=== PATIENT | female | born 1980 | race Caucasian/White ===

== ENCOUNTER 2017-02-21 18:35 | Outpatient (CLI) | payer SELFPAY | END 2017-02-21 18:36 | disposition EMS.NT | LOC: EMS 18:35 | PROVIDERS: ATTEND Surgery | DX: M25.512 Pain in left shoulder (principal); V49.9XXA Car occupant (driver) (passenger) injured in unspecified traffic accident, initial encounter; Y92.413 State road as the place of occurrence of the external cause ==

== ENCOUNTER 2017-03-18 08:28 | Outpatient (CLI) | payer OTHER ==
--- NOTE | 2017-03-18 16:40 | MRI Report ---
EXAM: MRI BRAIN WITHOUT CONTRAST EXAM DATE: 03/18/2017 09:16 AM. CLINICAL HISTORY: Amnesia. COMPARISON: None. TECHNIQUE: Multiplanar, multisequence T1-weighted and fluid-sensitive MR sequences of the brain were performed. Sequences optimized for routine evaluation. Other: None. IV Contrast: None. FINDINGS: Brain Volume: Normal for age. Parenchyma/Dura: No mass, acute infarct or hemorrhage. No white matter lesions identified. The hippoc ampal formation and medial temporal lobes are symmetric and unremarkable. Ventricles/Cisterns: No hydrocephalus. No abnormal extra-axial fluid collection or hemorrhage. Orbits: Symmetric and unremarkable. Sella Turcica: The pituitary gland, cavernous sinuses, suprasellar cistern and optic chiasm are unrem arkable. IAC: Symmetric and unremarkable. Vasculature: Normal signal flow void is seen in the major arterial structures at the skull base. Sinuses: Polypoid mucosal thickening and mucous retention cysts are seen in the maxillary antra, grea ter on the right. The mastoid air cells are clear. Bones: No focal pathologic appearing marrow signal changes. Other: None. IMPRESSION: 1.Normal noncontrast MRI of the brain. No acute abnormality. 2. Scattered polypoid mucosal thickening and mucous retention cysts in the maxillary antra, greater o n the right. [facility] Referring Provider Line: [phone] SITE ID: [id number]
== END 2017-03-18 08:29 | disposition home or self-care (01) ==
LOC: DI 08:28
PROVIDERS: ATTEND Registered Nurse Diabetes Educator
DX: R41.3 Other amnesia (principal); J34.1 Cyst and mucocele of nose and nasal sinus
CPT/HCPCS: 70551